=== PATIENT | male | born 1965 | race Two or more races ===

== ENCOUNTER 2020-10-23 07:57 | Emergency (ER) | payer OTHER ==
[~2020-10-23] VITALS: Ht 172.7 cm; Wt 75.5 kg
[2020-10-23 08:03] VITALS: BP 141/99
--- NOTE | 2020-10-23 09:15 | NUR ---
ICE PLACED RIGHT FOREARM
[2020-10-23] MEDS ORDERED: ONDANSETRON ODT 4 MG ONE (09:26)
[2020-10-23] MEDS ORDERED: HYDROcodone/APAP 5/325 TABLET ONE (09:26)
[2020-10-23] MEDS ORDERED: HYDROcodone/APAP 5/325 TABLET PO ONE (09:30)
[2020-10-23] MEDS ORDERED: ONDANSETRON ODT 4 MG PO ONE (09:30)
--- NOTE | 2020-10-23 09:30 | NUR ---
TECH AT BEDSIDE PLACING SPLINT
--- NOTE | 2020-10-23 09:50 | NUR ---
GOOD DISTAL CMS NOTED RIGHT HAND AFTER SPLINT PLACED
== END 2020-10-23 10:42 | disposition home or self-care (01) ==
LOC: ED 08:07
DX: S52.571A Other intraarticular fracture of lower end of right radius, initial encounter for closed fracture (principal); S52.614A Nondisplaced fracture of right ulna styloid process, initial encounter for closed fracture; W18.30XA Fall on same level, unspecified, initial encounter; Y93.89 Activity, other specified; Y92.89 Other specified places as the place of occurrence of the external cause; Y99.8 Other external cause status
CPT/HCPCS: 29125; 73080; 73110; 99284; Q0162